=== PATIENT | male | born 1990 ===

== ENCOUNTER 2023-12-14 18:25 | Outpatient (REF) | payer MEDICAID, SELFPAY ==
[2023-12-14 21:08] LABS: Abs Immature Grans 0.01 10^3/uL (0.0-0.06); Absolute Basophil Count 0.06 10^3/uL (0.0-0.2); Absolute Eosinophil Count 0.13 10^3/uL (0.0-0.7); Absolute Lymphocyte Count 1.86 10^3/uL (1.2-3.4); Absolute Monocyte Count 0.56 10^3/uL (0.1-0.8); Absolute Neutrophil Count 3.13 10^3/uL (1.2-6.7); Eosinophils % 2.3 %; HCT 43.1 % (40.0-50.0); HGB 14.7 g/dL (13.5-17.5); Immature Grans % 0.2 %; Lymphocytes % 32.3 %; MCH 28.9 pg (27.0-33.0); MCHC 34.1 % (32.0-36.0); MCV 85 fL (80-95); MPV 11.9 fL (8.0-11.0); Monocytes % 9.7 %; Neutrophils % 54.5 %; Platelet Count 206 10^3/uL (130-400); RBC 5.08 10^6/uL (4.36-5.78); RDW 12.2 % (11.8-14.1); RDW-SD 37.3 fL; WBC 5.75 10^3/uL (4.4-10.8)
[2023-12-14 21:17] LABS: ESR 6 mm/hr (0-15)
[2023-12-14 21:24] LABS: ALT 30 U/L (16-63); AST 23 U/L (15-37); Albumin 3.9 g/dL (3.4-5.0); Alkaline Phosphatase 83 U/L (46-116); Anion Gap 10.5 mmol/L (3-11); BUN 27 mg/dL (7-18); Bilirubin, Total 0.29 mg/dL (0.2-1.0); CO2 29.5 mmol/L (21.0-32.0); CREATININE 1.1 mg/dL (0.70-1.30); Chloride 108 mmol/L (98-107); Glucose 63 mg/dL (74-106); Potassium 4.4 mmol/L (3.5-5.1); Sodium 148 mmol/L (136-145)
[2023-12-14 21:35] LABS: C-Reactive Protein < 0.50 mg/dL (<or=0.5)
[2023-12-16 11:07] LABS: Lyme Ab w Rflx to Lyme Confirm Positive (Negative)
[2023-12-16 15:42] LABS: Lyme IgG Ab Positive (Negative); Lyme IgM Ab Positive (Negative)
[2023-12-17 23:17] LABS: Anaplasma phagocytophilum Negative (Negative); B. miyamotoi PCR Negative (Negative); Babesia divergens/MO-1 Negative (Negative); Babesia duncani Negative (Negative); Babesia microti Negative (Negative); Ehrlichia chaffeensis Negative (Negative); Ehrlichia ewingii/canis Negative (Negative); Ehrlichia muris eauclairensis Negative (Negative)
== END 2023-12-14 18:26 | disposition home or self-care (01) ==
LOC: NCHCN 18:25
PROVIDERS: Visit Provider Family Medicine
DX: Z20.818 Contact with and (suspected) exposure to other bacterial communicable diseases (principal); M25.59 Pain in other specified joint; R53.83 Other fatigue
CPT/HCPCS: 80053; 85652; 86617; 87798; 85025; 86140; 86618